=== PATIENT | male | born 1940 | race Caucasian/White ===

== ENCOUNTER 2016-11-24 07:11 | Emergency (ER) | payer MEDICARE ==
[~2016-11-24] VITALS: Ht 182.9 cm; Wt 118.2 kg
[~2016-11-24 07:11] MED LIST: AMLO-39 PO; CHOL10008 PO; ECHI400C17 PO; GARL1TAB PO; LEVO175T5 PO; LISI1TAB9 PO; METF-496 PO; MULT1CAP33 PO; OMEG-38 PO; WARF10TA4 PO; WARF7.5T4 PO
[2016-11-24 07:29] VITALS: BP 156/62; PULSE 75; RESP 13; O2SAT 97
--- NOTE | 2016-11-24 07:35 | ED.REPORT ---
HPI-Back Pain 40 and Over Date of Service Nov 24, 2016 ED Provider: Valarie Soriano MD Patient is a 76 year old male with a hx of laminectomies, HTN, and DM of who presents to the ED via EMS complaining of gradually worsening R sided back pain for the past few weeks that was worse this morning. Upon waking he notes that he had trouble walking and was dizzy and lightheaded from the pain. He describes the pain as constant without radiation and notes that it is worse when moving but relieved by standing straight up. Associated symptoms include night sweats last night and nausea 2 days ago. He denies bowel or bladder problems, chills, numbness, weakness, vomiting, dysuria, hematuria, or any other symptoms. He received an adjustment a week ago with some relief but his pain returned the next day. He saw his PCP yesterday who gave him muscle relaxers for his spasms secondary to pain. He has had back pain previously but it has not been this severe "in years". Nursing Notes Stated Complaint: BACK PAIN Chief Complaint: Back Pain or Injury Nursing Notes Reviewed: Yes Allergies: Coded Allergies: No Known Allergies (Unverified , 03/03/16) Scheduled Amlodipine (Norvasc) 5 Mg Tablet 5 MG PO DAILY Cholecalciferol (Vitamin D3) (Vitamin D3) 1,000 Unit Tab.chew 2,000 UNIT PO DAILY Echinacea (Echinacea) 400 Mg Capsule 400 MG PO DAILY Garlic (Garlic) 1 Each Tablet 2 EACH PO DAILY Levothyroxine (Levothyroxine) 175 Mcg Tablet 175 MCG PO DAILY Lisinopril / HCTZ 20-12.5 mg (Lisinopril / HCTZ 20-12.5 mg) 1 Each Tablet 1 EACH PO BID Metformin ER (Metformin ER) 1,000 Mg Tablet 1,000 MG PO BID Multivitamin (Multivitamins) 1 Each Capsule 1 EACH PO DAILY [place]-3/Dha/Epa/Fish Oil (Fish Oil 1,000 mg Softgel) 1 Each Capsule 1 EACH PO DAILY Warfarin Sodium (Warfarin Sodium) 7.5 Mg Tablet 7.5 MG PO mon,wed,fri Warfarin Sodium (Warfarin Sodium) 10 Mg Tablet 10 MG PO sun,tues,thurs,sat General Time Seen by MD: 07:34 Chief Complaint Back pain Hx Obtained From: Patient Arrived By: Ambulance Sudden in Onset?: No Recent Healthcare: Recent doctor visit Similar Sx Previous: Yes Risk Factors )( AAA Risk Stratification Abdominal Aortic Aneurysm Risk: HypertensionNo Prior AAA, No Smoking Risk factors reviewed )( TAD Risk Stratification HypertensionNo Risk factors reviewed Past Medical History Past Medical History Atrial fibrillation Hypertension High cholesterol Diabetes mellitus Reports: Thyroid disease Past Surgical History Hernia repair x3 Laminectomy (double and single) Left ankle surgery Wrist Family History Noncontributory Smoking History Former Smoker Social History Alcohol Use: "Social" Drug Use: Denies drug use Other Social History: Good social support, , Local resident Ambulatory Status Independent Review of Systems Review of Systems Note: +night sweats Constitutional: Denies: Chills GI: Reports: Nausea, Denies: Vomiting Male: Denies Dysuria, Denies Hematuria Musculoskeletal: Reports: Back pain Neurologic: Reports: Dizziness (secondary to pain), Lightheaded (secondary to pain), Problem walking (Secondary to pain), Denies: Bladder dysfunction, Bowel dysfunction, Numbness, Weakness Complete sys rev & neg: except as marked. Physical Exam Initial Vital Signs Vital Signs (First) Date Time Temp Pulse Resp B/P Pulse Ox O2 Delivery O2 Flow Rate FiO2 11/24/16 07:29 36.7 75 13 156/62 97 Room Air Initial VS: Reviewed, Vital signs abnormal Head / Eyes: Atraumatic, Normocephalic Neck: Full range of motion Skin: Warm, Dry Psychiatric: Mood/affect normal, Behavior normal, Normal thought content General/Constitutional: Awake, Alert, Well developed Respiratory / Chest: Breath sounds NL, Breath sounds = bilat, No respiratory distress Cardiovascular: Peripheral circulation NL Abdomen: Soft, Non-tender Back: No CVA tenderness R sided iesha-lumbar point tenderness that causes spasm Postive straight leg raise at 45 degrees Neurologic: Oriented X3, Speech NL Procedures 0818 Trigger point injection administered. Area most tender to the R of Iesha-lumbar spine was injected. Skin was cleaned with ChloraPrep. Injection was 50/50 Lidocaine and Normal saline. Patient tolerated procedure well and condition is improved. Re-Eval/Medical Decision Med Decision/Clinical Course This patient presents with back pain is musculoskeletal in nature, such as sciatica have his pain only goes in his back into his right gluteal area. He did respond to a trigger point injection with significant improvement in his pain and spasm. Additional differential diagnoses considered were pyelonephritis, ruptured abdominal aortic aneurysm, cauda equina syndrome, and DJD. Re-Evaluation/Progress : Time of Eval: 08:47 Patient Status: Condition improved Re-Evaluation/Progress Note: Rechecked patient. He is feeling much better and has had significant improvement. Discussed plan for discharge. Patient understands and agrees with plan. All questions addressed at this time. Counseled Regarding: Diagnosis, Need for follow-up, When/why to return to ED Discharge & Departure Impression: Primary Impression: Musculoskeletal back pain Disposition: Home Discharge Condition All VS Reviewed: Yes Condition: Improved Additional Instructions: Thank you for entrusting us with your care. You may perform activities as tolerated. Continue to follow instructions given by your primary doctor. Follow up with your primary doctor in one week if your symptoms have not resolved. Return to the emergency department if you experience numbness, weakness, fever, increasing pain, or any other new or concerning symptoms. Referrals: Jarad Jarvis DO (PCP) Scribe Attestation Portions of this note were transcribed by Curtis Staley. I, Dr. Soriano personally performed the history, physical exam and medical decision-making; I reviewed and confirmed the accuracy of the information in the transcribed note. Signed by: Curtis Staley 11/22/16, 0849 copies to: Jarad Jarvis Jena M MD Nov 24, 2016 07:35 CURTIS STALEY Nov 24, 2016 07:43
[2016-11-24 09:04] VITALS: BP 121/59; PULSE 75; RESP 15; O2SAT 97
== END 2016-11-24 09:05 | disposition home or self-care (01) ==
LOC: EDBD 07:11 → SED 07:11
DX: M54.9 Dorsalgia, unspecified (principal); R42 Dizziness and giddiness; R11.0 Nausea; I10 Essential (primary) hypertension; E11.9 Type 2 diabetes mellitus without complications; I48.91 Unspecified atrial fibrillation; Z87.891 Personal history of nicotine dependence; Z79.01 Long term (current) use of anticoagulants; Z79.84 Long term (current) use of oral hypoglycemic drugs